=== PATIENT | female | born 1960 | race Two or more races ===

== ENCOUNTER 2017-07-23 17:34 | Emergency (ER) | payer OTHER ==
[~2017-07-23] VITALS: Ht 172.7 cm; Wt 86.2 kg
[2017-07-23 17:47] VITALS: BP 152/63
== END 2017-07-23 19:45 | disposition home or self-care (01) ==
LOC: ER 17:45
DX: M79.672 Pain in left foot (principal); L84 Corns and callosities; I10 Essential (primary) hypertension; Z88.5 Allergy status to narcotic agent
CPT/HCPCS: 73630; 99284; A4606; Z7610

== ENCOUNTER 2018-07-01 15:49 | Emergency (ER) | payer OTHER ==
[~2018-07-01] VITALS: Ht 172.7 cm; Wt 95.3 kg
--- NOTE | 2018-07-01 16:00 | NUR ---
.PT BIB SELF CP "started last night usually on/off sharp but now more constant. Hx AF" PT IS AAOX4, NOT IN RESPIRATORY DISTRESS, V/S STABLE, HOOKED TO MONITOR, KEPT RESTED AND COMFORTABLE, WILL CONTINUE TO MONITOR
--- NOTE | 2018-07-01 16:13 | NUR ---
SEEN AND EXAMINED BY REGINO PULLIAM
[2018-07-01] MEDS ORDERED: ASPIRIN 325 MG TABLET ONE (16:21)
[2018-07-01] MEDS ORDERED: NITROGLYCERIN 0.4 MG/TAB BOTTLE ONE (16:21)
[2018-07-01] MEDS: ASPIRIN 325 MG TABLET PO ONE (16:24)
[2018-07-01] MEDS: NITROGLYCERIN 0.4 MG/TAB BOTTLE SL ONE (16:24)
--- NOTE | 2018-07-01 16:25 | NUR ---
OIL WELL LOGGER AT BEDSIDE FOR XRAY.
--- NOTE | 2018-07-01 16:30 | NUR ---
IV LINE ESTABLISHED, LABS DRAWNED AND SENT TO LAB.
[2018-07-01 16:33] LABS: BASOPHILS % (AUTO) 0.6 % (0.0-2.0); EOSINOPHILS % (AUTO) 1.3 % (0.0-6.0); HEMATOCRIT 44 % (33-45); HEMOGLOBIN 14.8 g/dL (11.5-14.8); LYMPHOCYTES # (AUTO) 2.3 /CMM (0.8-4.8); LYMPHOCYTES % (AUTO) 42.1 % (20.0-44.0); MEAN CORPUSCULAR HGB CONC 34 g/dl (31.0-36.0); MEAN CORPUSCULAR VOLUME 92 fL (82-100); MONOCYTES # (AUTO) 0.4 /CMM (0.1-1.30); NEUTROPHILS # (AUTO) 2.7 /CMM (1.8-8.9); PLATELET COUNT (AUTO) 213 /CMM (150-450); RED BLOOD CELL COUNT(AUTO) 4.73 MIL/uL (4.0-5.2); WHITE BLOOD COUNT (AUTO) 5.4 K/uL (4.3-11.0)
[2018-07-01 16:40] LABS: CALCIUM, SERUM 8.8 mg/dL (8.5-10.1); CARBON DIOXIDE 27 mmol/L (21-32); CHLORIDE 106 mmol/L (98-107); CREATININE 0.9 mg/dL (0.6-1.3); GLUCOSE 138 mg/dL (74-106); POTASSIUM 4.2 mmol/L (3.5-5.1); SODIUM SERUM 140 mmol/L (136-145); UREA NITROGEN, BLOOD 18 mg/dL (7-18)
[2018-07-01 16:46] LABS: ALANINE AMINOTRANSFERASE 58 U/L (12-78); ALBUMIN 3.7 g/dL (3.4-5.0); ALKALINE PHOSPHATASE 141 U/L (46-116); ASPARTATE AMINOTRANSFERASE 34 U/L (15-37); BILIRUBIN,DIRECT 0.1 mg/dL (0.0-0.2); BILIRUBIN,TOTAL 0.7 mg/dL (0.2-1.0); TOTAL PROTEIN, SERUM 7.3 g/dL (6.4-8.2)
--- NOTE | 2018-07-01 19:10 | NUR ---
REPORT GIVEN TO MARIANELA FOR JUSTYNA.
--- NOTE | 2018-07-01 19:11 | NUR ---
REPEAT TROPONIN IN PROGRESS.
--- NOTE | 2018-07-01 19:11 | NUR ---
REPORT REC'D FROM LUISA SYKES RN FOR JUSTYNA.
--- NOTE | 2018-07-01 20:23 | NUR ---
Rahul CHARLES AGACNP-BC IS AT THE BEDSIDE AND IS SPEAKING TO THE PT RE: DISCHARGE
--- NOTE | 2018-07-01 20:28 | NUR ---
IV removed. Catheter intact and site benign. Pressure and 4x4 applied to site. No bleeding noted. Patient discharged to home in stable condition. Written and verbal after care instructions given. Patient verbalizes understanding of instruction. PT REC'D A COPY OF ALL LABS, EKG'S AND CXR FINDINGS. PT AMBULATED OUT WITH A STEADY GAIT. VSS.
[2018-07-01 20:29] VITALS: BP 148/96
== END 2018-07-01 20:30 | disposition home or self-care (01) ==
LOC: ER 15:51
DX: R07.89 Other chest pain (principal); I48.91 Unspecified atrial fibrillation; I10 Essential (primary) hypertension; F41.9 Anxiety disorder, unspecified; Z90.89 Acquired absence of other organs; Z88.5 Allergy status to narcotic agent; Z60.2 Problems related to living alone
CPT/HCPCS: 36415; 71045-TC; 80048-TC; 80076-TC; 84484-TC; 85025-TC; 85730-TC

== ENCOUNTER 2019-03-23 01:05 | Emergency (ER) | payer OTHER ==
[~2019-03-23] VITALS: Ht 172.7 cm; Wt 93.4 kg
--- NOTE | 2019-03-23 01:25 | NUR ---
PT BIBSELF C/O "HAD URINARY FREQUENCY LAST WEEK, +FEVER +CHILLS. +NIGHTSWEAT" -SOB AOX4. VSS. AMBULATORY. PT ON MONITOR IN BED 1. WILL CONTINUE TO MONITOR.
[2019-03-23] MEDS ORDERED: ONDANSETRON HCL/PF 4 MG/2 ML VIAL IVP ONE (02:00)
[2019-03-23 02:05] VITALS: BP 116/71
[2019-03-23 02:05] LABS: APPEARANCE,URINE Cloudy (CLEAR); BILIRUBIN,URINE MODERATE (NEGATIVE); BLOOD, URINE Moderate Ery/uL (NEGATIVE); COLOR,URINE Other (YELLOW); KETONES,URINE Trace (NEGATIVE); LEUKOCYTE ESTERASE ,URINE Large (NEGATIVE); NITRITE, URINE Negative (NEGATIVE); PH,URINE 5.5 (5.0-8.0); PROTEIN,URINE >=300 mg/dl (NEGATIVE); UGLUCOSE Negative (NEGATIVE)
[2019-03-23] MEDS ORDERED: ONDANSETRON HCL/PF 4 MG/2 ML VIAL ONE (02:06)
[2019-03-23 02:10] LABS: BASOPHILS # (AUTO) 0.3 /CMM (0.0-0.2); BASOPHILS % (AUTO) 2.2 % (0.0-2.0); EOSINOPHILS % (AUTO) 0.8 % (0.0-6.0); HEMATOCRIT 41 % (33-45); HEMOGLOBIN 13.9 g/dL (11.5-14.8); LYMPHOCYTES % (AUTO) 7.3 % (20.0-44.0); MEAN CORPUSCULAR HGB CONC 34 g/dl (31.0-36.0); MEAN CORPUSCULAR VOLUME 90 fL (82-100); MONOCYTES # (AUTO) 1.2 /CMM (0.1-1.30); NEUTROPHILS # (AUTO) 10.7 /CMM (1.8-8.9); NEUTROPHILS % (AUTO) 80.7 % (43.0-81.0); PLATELET COUNT (AUTO) 191 /CMM (150-450); RED BLOOD CELL COUNT(AUTO) 4.55 MIL/uL (4.0-5.2); WHITE BLOOD COUNT (AUTO) 13.3 K/uL (4.3-11.0)
[2019-03-23] MEDS ORDERED: CT SWABBABLE VALVE TRANS SET 1 EA INFUS.SET MC ONE (02:14)
[2019-03-23] MEDS ORDERED: IOHEXOL-300 100 ML VIAL IV ONE (02:14)
[2019-03-23] MEDS ORDERED: IV NS 0.9% 250 ML IV ONE (02:15)
[2019-03-23 02:19] LABS: CALCIUM, SERUM 9.3 mg/dL (8.5-10.1); CREATININE 1.4 mg/dL (0.6-1.3); POTASSIUM 3.6 mmol/L (3.5-5.1)
[2019-03-23 02:20] LABS: BACTERIA,URINE MP /HPF (None Seen); SQUAMOUS EPITHELIAL CELL,UR Moderate /HPF (None Seen); WBC,URINE 21-50 /HPF (0-3)
[2019-03-23 02:25] LABS: ALBUMIN 2.6 g/dL (3.4-5.0); BILIRUBIN,DIRECT 0.3 mg/dL (0.0-0.2); BILIRUBIN,TOTAL 0.8 mg/dL (0.2-1.0); TOTAL PROTEIN, SERUM 7.6 g/dL (6.4-8.2)
--- NOTE | 2019-03-23 02:30 | NUR ---
PT TAKEN TO RADIOLOGY VIA [facility]
--- NOTE | 2019-03-23 02:48 | NUR ---
PT RETURNED FROM RADIOLOGY VIA [facility]
[2019-03-23] MEDS ORDERED: CEPHALEXIN MONOHYDRATE 500 MG CAPSULE PO ONE ×2 (03:52→04:00)
--- NOTE | 2019-03-23 04:07 | NUR ---
IV removed. Catheter intact and site benign. Pressure and 4x4 applied to site. No bleeding noted.Patient discharged to home in stable condition. Written and verbal after care instructions given. Patient verbalizes understanding of instruction.
== END 2019-03-23 04:15 | disposition home or self-care (01) ==
LOC: ER 01:07
DX: N12 Tubulo-interstitial nephritis, not specified as acute or chronic (principal); N83.201 Unspecified ovarian cyst, right side; I10 Essential (primary) hypertension; I48.91 Unspecified atrial fibrillation; Z88.5 Allergy status to narcotic agent; Z60.2 Problems related to living alone
CPT/HCPCS: 36415; 74177; 80048; 80076; 81001; 83690; 85025; 87086; 99284; J2405; J7050; Q9967; 81000-TC; 87186-TC

== ENCOUNTER 2019-06-11 18:47 | Emergency (ER) | payer OTHER ==
[~2019-06-11] VITALS: Ht 172.7 cm; Wt 93.4 kg
[2019-06-11 18:49] VITALS: BP 168/96
--- NOTE | 2019-06-11 19:11 | NUR ---
CORNELIA. TO ER BED 9. AAOX4. NOT IN RESP DISTRESS. AMBULATORY W/ A LIMP. C/O L ELBOW, LSHOULDER AND L HIP PAIN S/P GLF. PT REPORTS THATB SHE SLIPPED AND FELL ON HER L SIDE. DENIES HT , -LOC. ROM ARE INTACT. MD AT BEDSIDE FOR EVAL. AWAITING ORDERS
--- NOTE | 2019-06-11 19:24 | NUR ---
XRAY AT BEDSIDE
--- NOTE | 2019-06-11 20:26 | NUR ---
PT IN BED. NO RESP DISTRESS
--- NOTE | 2019-06-11 21:38 | NUR ---
Patient discharged to home in stable condition. Written and verbal after care instructions given. Patient verbalizes understanding of instruction. Pt ambulatory with a steady gait
== END 2019-06-11 21:41 | disposition home or self-care (01) ==
LOC: ER 18:52
DX: M25.512 Pain in left shoulder (principal); M25.522 Pain in left elbow; M25.552 Pain in left hip; I10 Essential (primary) hypertension; I48.91 Unspecified atrial fibrillation; Z90.89 Acquired absence of other organs; Z88.5 Allergy status to narcotic agent; Z60.2 Problems related to living alone; W01.0XXA Fall on same level from slipping, tripping and stumbling without subsequent striking against object, initial encounter; Y93.89 Activity, other specified; Y92.89 Other specified places as the place of occurrence of the external cause; Y99.8 Other external cause status
CPT/HCPCS: 73030-TC; 73080-TC; 73502

== ENCOUNTER 2020-02-24 18:01 | Emergency (ER) | payer OTHER ==
[~2020-02-24] VITALS: Ht 172.7 cm; Wt 105.7 kg
--- NOTE | 2020-02-24 18:27 | NUR ---
BIBS. SENT FROM URGENT CARE TO ER BED 6. AAOX4. NOT IN RESP DISTRESS, BREATHING EVEN AND UNLABORED. TALKING IN FULL SENTENCES. AMBULATORY. SENT IN FOR POSSIBLE PULMUNARY EMBOLISM D/T PT HAD HEMPOTYSIS. PT IS SATTING WELL ON RA @ 98%. VSS. PT WAS COVID POSITIVE BACK IN FEB 11. MD WAS AT THE BEDSIDE FOR EVAL. PT IS ON ISOLATION
--- NOTE | 2020-02-24 19:00 | NUR ---
iv line established. blood drawn, covid swab and flu swab collected and sent to lab
[2020-02-24 19:11] LABS: BASOPHILS # (AUTO) 0.1 /CMM (0.0-0.2); BASOPHILS % (AUTO) 1.3 % (0.0-2.0); EOSINOPHILS % (AUTO) 0.4 % (0.0-6.0); HEMATOCRIT 46 % (33-45); HEMOGLOBIN 15.6 g/dL (11.5-14.8); LYMPHOCYTES % (AUTO) 30.2 % (20.0-44.0); MEAN CORPUSCULAR HGB CONC 34 g/dl (31.0-36.0); MEAN CORPUSCULAR VOLUME 92 fL (82-100); MONOCYTES # (AUTO) 0.4 /CMM (0.1-1.30); NEUTROPHILS % (AUTO) 62.1 % (43.0-81.0); PLATELET COUNT (AUTO) 237 /CMM (150-450); RED BLOOD CELL COUNT(AUTO) 5.04 MIL/uL (4.0-5.2); WHITE BLOOD COUNT (AUTO) 6.5 K/uL (4.3-11.0)
[2020-02-24] MEDS ORDERED: ASCO500T20 PO (19:16)
[2020-02-24] MEDS ORDERED: CHOL100040 PO (19:16)
[2020-02-24] MEDS ORDERED: UBID30CA11 PO (19:16)
[2020-02-24] MEDS ORDERED: VERA180T25 PO (19:16)
[2020-02-24] MEDS ORDERED: ASPI-992 PO (19:16)
[2020-02-24] MEDS ORDERED: ZINC50TA69 PO (19:16)
[2020-02-24] MEDS ORDERED: TURM500C9 PO (19:17)
[2020-02-24] MEDS ORDERED: OMEG1CAP PO (19:17)
[2020-02-24 19:30] LABS: ALANINE AMINOTRANSFERASE 21 U/L (12-78); ALBUMIN 3.6 g/dL (3.4-5.0); ALKALINE PHOSPHATASE 130 U/L (46-116); ASPARTATE AMINOTRANSFERASE 24 U/L (15-37); B-TYPE NATRIURETIC PEPTIDE 705 PG/ML (0-125); BILIRUBIN,TOTAL 0.4 mg/dL (0.2-1.0); CALCIUM, SERUM 8.9 mg/dL (8.5-10.1); CARBON DIOXIDE 25 mmol/L (21-32); CHLORIDE 105 mmol/L (98-107); CREATININE 0.8 mg/dL (0.6-1.3); GLUCOSE 83 mg/dL (74-106); POTASSIUM 3.6 mmol/L (3.5-5.1); SODIUM SERUM 141 mmol/L (136-145); TOTAL PROTEIN, SERUM 8.3 g/dL (6.4-8.2); UREA NITROGEN, BLOOD 18 mg/dL (7-18)
[2020-02-24] MEDS ORDERED: CEFTRIAXONE 1GM BAG (ER ONLY) 50 ML IV ONE ×2 (20:30→21:01)
[2020-02-24] MEDS ORDERED: IV NS 0.9% 500 ML BAG IV ONE (20:30)
--- NOTE | 2020-02-24 22:26 | NUR ---
Pt is medically stable for D/C. IV removed. Catheter intact and site benign. Pressure and 4x4 applied to site. No bleeding noted.Patient discharged to home in stable condition. Rx and Written and verbal after care instructions given. Patient verbalizes understanding of instruction.
[2020-02-24 22:28] VITALS: BP 138/82
== END 2020-02-24 22:28 | disposition home or self-care (01) ==
LOC: ER 18:01
DX: U07.1 COVID-19 (principal); J12.89 Other viral pneumonia; R04.2 Hemoptysis; R79.1 Abnormal coagulation profile; I48.91 Unspecified atrial fibrillation; Z79.82 Long term (current) use of aspirin; Z85.828 Personal history of other malignant neoplasm of skin; I11.0 Hypertensive heart disease with heart failure; R03.0 Elevated blood-pressure reading, without diagnosis of hypertension
CPT/HCPCS: 36415; 71045; 80053; 83605; 83880; 84145; 84484; 85025; 85378; 86140; 87040 ×2; 87804; 93005; 96365; 99285; C9803; J0696; J7040; U0003

== ENCOUNTER 2022-10-30 22:51 | Emergency (ER) | payer OTHER ==
[~2022-10-30] VITALS: Ht 167.6 cm; Wt 115.7 kg
[~2022-10-30 22:51] MED LIST: ASCO500T20 PO; ASPI-992 PO; CHOL100040 PO; OMEG1CAP PO; TURM500C9 PO; UBID30CA11 PO; VERA180T25 PO; ZINC50TA69 PO
[2022-10-30] MEDS ORDERED: IOHEXOL-350 100 ML VIAL IV ONE (23:04)
[2022-10-30] MEDS ORDERED: IV NS 0.9% 250 ML IV ONE (23:04)
[2022-10-30] MEDS ORDERED: CT SWABBABLE VALVE TRANS SET 1 EA INFUS.SET MC ONE (23:04)
[2022-10-30 23:08] LABS: BASOPHILS # (AUTO) 0.1 K/uL (0.0-0.2); BASOPHILS % (AUTO) 0.6 % (0.0-2.0); EOSINOPHILS % (AUTO) 1.2 % (0.0-6.0); HEMATOCRIT 46 % (33-45); HEMOGLOBIN 15.3 g/dL (11.5-14.8); LYMPHOCYTES # (AUTO) 3.8 K/uL (0.8-4.8); LYMPHOCYTES % (AUTO) 44.1 % (20.0-44.0); MEAN CORPUSCULAR HGB CONC 34 g/dl (31.0-36.0); MEAN CORPUSCULAR VOLUME 91 fL (82-100); MONOCYTES # (AUTO) 0.6 K/uL (0.1-1.30); MONOCYTES % (AUTO) 6.9 % (2.0-12.0); NEUTROPHILS # (AUTO) 4.1 K/uL (1.8-8.9); NEUTROPHILS % (AUTO) 47.2 % (43.0-81.0); PLATELET COUNT (AUTO) 211 K/uL (150-450); WHITE BLOOD COUNT (AUTO) 8.6 K/uL (4.3-11.0)
[2022-10-30 23:23] LABS: ALANINE AMINOTRANSFERASE 59 U/L (12-78); ALBUMIN 4.3 g/dL (3.4-5.0); ALKALINE PHOSPHATASE 143 U/L (46-116); ASPARTATE AMINOTRANSFERASE 35 U/L (15-37); BILIRUBIN,DIRECT 0.1 mg/dL (0.0-0.2); BILIRUBIN,TOTAL 0.6 mg/dL (0.2-1.0); CALCIUM, SERUM 9.2 mg/dL (8.5-10.1); CARBON DIOXIDE 23 mmol/L (21-32); CHLORIDE 101 mmol/L (98-107); GLUCOSE 96 mg/dL (74-106); POTASSIUM 3.6 mmol/L (3.5-5.1); SODIUM SERUM 139 mmol/L (136-145); TOTAL PROTEIN, SERUM 8.4 g/dL (6.4-8.2); UREA NITROGEN, BLOOD 19 mg/dL (7-18)
[2022-10-31] MEDS ORDERED: IV NS 0.9% 50 ML BAG IV ONE
[2022-10-31] MEDS ORDERED: ALTEPLASE 100 MG/VIAL VIAL IV ONE
[2022-10-31 00:05] LABS: BILIRUBIN,URINE NEGATIVE (NEGATIVE); COLOR,URINE YELLOW (YELLOW); LEUKOCYTE ESTERASE ,URINE NEGATIVE (NEGATIVE); NITRITE, URINE NEGATIVE (NEGATIVE); PH,URINE 6.5 (5.0-8.0); PROTEIN,URINE NEGATIVE (NEGATIVE); UGLUCOSE NEGATIVE (NEGATIVE); UROBILINOGEN,URINE 0.2 EU/dL (0.2)
[2022-10-31] MEDS ORDERED: LABETALOL HCL IV 100MG VIAL IV ONE (00:30)
[2022-10-31 03:15] VITALS: BP 156/75; TEMP 98.5; O2SAT 99
== END 2022-10-31 03:17 | disposition short-term general hospital (02) ==
LOC: ER 22:53
DX: I63.50 Cerebral infarction due to unspecified occlusion or stenosis of unspecified cerebral artery (principal); R47.01 Aphasia; I10 Essential (primary) hypertension; I48.91 Unspecified atrial fibrillation; Z90.89 Acquired absence of other organs; Z86.16 Personal history of COVID-19; Z88.5 Allergy status to narcotic agent; Z60.2 Problems related to living alone; Z79.899 Other long term (current) drug therapy
CPT/HCPCS: 36415; 37195; 70450; 70496; 71045; 80048; 80076; 81003; 82962; 84484; 85025; 85730; 87081; 93005; 96374; 99291; J2997; J3490; J7050; Q9967

== ENCOUNTER 2023-07-06 20:32 | Emergency (ER) | payer OTHER ==
[~2023-07-06] VITALS: Ht 172.7 cm; Wt 100.7 kg
[2023-07-06] MEDS: ACETAMINOPHEN ES 500 MG TABLET PO ONE (22:09)
[2023-07-06] MEDS ORDERED: ACETAMINOPHEN ES 500 MG TABLET ONE (22:09)
[2023-07-07] MEDS ORDERED: ACET-2605 PO (00:19)
[2023-07-07 00:29] VITALS: BP 138/87; TEMP 98.6; O2SAT 99
== END 2023-07-07 00:40 | disposition home or self-care (01) ==
LOC: ER 20:42
DX: S20.211A Contusion of right front wall of thorax, initial encounter (principal); M25.561 Pain in right knee; M79.601 Pain in right arm; N64.4 Mastodynia; I10 Essential (primary) hypertension; I48.91 Unspecified atrial fibrillation; Z86.16 Personal history of COVID-19; Z90.89 Acquired absence of other organs; Z88.5 Allergy status to narcotic agent; Z60.2 Problems related to living alone; Z79.899 Other long term (current) drug therapy; W18.30XA Fall on same level, unspecified, initial encounter; Y93.89 Activity, other specified; Y92.89 Other specified places as the place of occurrence of the external cause; Y99.8 Other external cause status
CPT/HCPCS: 71100-TC; 73060-TC; 73564-TC

== ENCOUNTER 2024-01-20 19:14 | Emergency (ER) | payer OTHER ==
[~2024-01-20] VITALS: Ht 172.7 cm; Wt 90.7 kg
[~2024-01-20 19:14] MED LIST changes: +ACET-2605 PO
[2024-01-20 19:52] VITALS: BP 160/87; TEMP 98
[2024-01-20 20:15] VITALS: O2SAT 100
== END 2024-01-20 21:24 | disposition home or self-care (01) ==
LOC: ER 19:15
DX: Z77.098 Contact with and (suspected) exposure to other hazardous, chiefly nonmedicinal, chemicals (principal); I10 Essential (primary) hypertension; I48.91 Unspecified atrial fibrillation; Z90.49 Acquired absence of other specified parts of digestive tract; Z79.82 Long term (current) use of aspirin; Z86.16 Personal history of COVID-19; Z88.5 Allergy status to narcotic agent